=== PATIENT | female | born 1970 | race Hispanic/Latino ===

== ENCOUNTER 2016-12-04 13:15 | Emergency (ER) | payer SELFPAY ==
[2016-12-04 13:38] VITALS: BP 107/64
[2016-12-04 14:07] LABS: Basophils % (Auto) 1.1 % (0.0-1.8); Eosinophils % (Auto) 2.3 % (0.0-4.3); Hematocrit 42.7 % (30.3-42.9); Hemoglobin 14.1 gm/dl (10.1-14.3); Mean Corpuscular HGB Conc 33 % (30-34); Mean Corpuscular Hemoglobin 29 pg (28-32); Mean Corpuscular Volume 86 fl (79-97); Platelet Count 430 K/mm3 (140-440); Red Blood Count 4.96 M/mm3 (3.65-5.03); Red Cell Distribution Width 15.8 % (13.2-15.2); White Blood Count 8.3 K/mm3 (4.5-11.0)
[2016-12-04 14:20] LABS: Anion Gap 17 mmol/L; BUN/Creatinine Ratio 13; Blood Urea Nitrogen 10 mg/dL (7-17); Calcium 9.1 mg/dL (8.4-10.2); Carbon Dioxide 26 mmol/L (22-30); Chloride 101.7 mmol/L (98-107); Glucose 82 mg/dL (65-100); Potassium 4.4 mmol/L (3.6-5.0); Sodium 140 mmol/L (137-145)
[2016-12-04 16:51] LABS: Urine Drugs of Abuse Note Disclamer
[2016-12-04 17:06] LABS: Bilirubin,Urine NEG (Negative); Blood,Urine MOD (Negative); Ketones,Urine TR mg/dL (Negative); Leukocyte Esterase,Urine MOD (Negative); Mucus,Urine 3+ /HPF; Nitrite,Urine NEG (Negative); Protein,Urine <15 mg/dL mg/dL (Negative)
== END 2016-12-04 16:25 | disposition left against medical advice (07) ==
LOC: ED 13:15
DX: F32.9 Major depressive disorder, single episode, unspecified (principal); Z53.21 Procedure and treatment not carried out due to patient leaving prior to being seen by health care provider
CPT/HCPCS: 36415; 80048; 80307; 81001; 85025; G0480; 80320

== ENCOUNTER 2018-09-28 14:53 | Emergency (ER) | payer OTHER ==
--- NOTE | 2018-09-28 15:14 | Event Note ---
ED Screening Note Date of service: 09/28/18 Time: 15:12 ED Screening Note: 48 y o female presents with cc of flank pain and pain with urination also cc of metcalf/ This initial assessment/diagnostic orders/clinical plan/treatment(s) is/are subject to change based on patients health status, clinical progression and re- assessment by fellow clinical providers in the ED. Further treatment and workup at subsequent clinical providers discretion. Patient/guardian urged not to elope from the ED as their condition may be serious if not clinically assessed and managed. Initial orders include: ua
[2018-09-28 15:17] VITALS: BP 107/54
[2018-09-28 16:11] LABS: Bacteria,Urine 2+ /HPF (Negative); Bilirubin,Urine NEG (Negative); Blood,Urine MOD (Negative); Color,Urine Yellow (Yellow); Mucus,Urine 1+ /HPF; Urobilinogen,Urine < 2.0 mg/dL (<2.0)
[2018-09-28 16:12] LABS: WBC,Urine > 182.0 /HPF (0.0-6.0)
--- NOTE | 2018-09-28 16:39 | Emergency Department Report ---
ED Female HPI - General Chief complaint: Urogenital-Female Stated complaint: HEADACHE/BACK/NECK PAIN/BURNING WHEN URINATE Time Seen by Provider: 09/28/18 15:12 Source: patient Mode of arrival: Ambulatory Limitations: No Limitations - History of Present Illness Initial comments: This is a 48-year-old female who presents to the emergency room with dysuria and pelvic pain for 3 days. Past medical history of arthritis, asthma, depression, bipolar, borderline personality disorder, and sciatica. Patient states she was discharged from [facility] on amoxicillin for urinary tract infection. She completed the last pill today with worsening symptoms. She denies hematuria, fever, and vaginal discharge. MD Complaint: dysuria Onset/Timin -: days(s) Location: suprapubic Radiation: L flank Severity: moderate Severity scale (0 -10): 8 Quality: aching Consistency: constant Improves with: none Worsens with: none Are you Now?: No Last Menstrual Period: 09/06/18 EDC: 06/13/19 Associated Symptoms: headaches, dysuria. denies: vaginal discharge, vaginal bleeding, abdominal pain, nausea/vomiting, fever/chills, loss of appetite, hematuria, rash, seizure, shortness of breath, syncope, weakness - Related Data Sexually active: No Previous Rx's Medication Instructions Recorded Last Taken Type Ciprofloxacin HCl [Ciprofloxacin 500 mg PO Q12HR #14 tab 09/28/18 Unknown Rx TAB] Ibuprofen [Motrin 800 MG tab] 800 mg PO Q8HR PRN #20 tablet 09/28/18 Unknown Rx Allergies Allergy/AdvReac Type Severity Reaction Status Date / Time No Known Allergies Allergy Verified 09/28/18 14:56 ED Review of Systems ROS: Stated complaint: HEADACHE/BACK/NECK PAIN/BURNING WHEN URINATE Other details as noted in HPI Constitutional: denies: chills, fever Respiratory: denies: cough, shortness of breath, wheezing Cardiovascular: denies: chest pain, palpitations Gastrointestinal: abdominal pain. denies: nausea, diarrhea Genitourinary: dysuria. denies: urgency, discharge Musculoskeletal: back pain. denies: joint swelling, arthralgia Skin: denies: rash, lesions Neurological: denies: headache, weakness, paresthesias Psychiatric: denies: anxiety, depression ED Past Medical Hx - Past Medical History Previous Medical History?: Yes Hx Arthritis: Yes Hx Psychiatric Treatment: Yes (depression, Bipolar, borderline personality, PTSD) Hx Asthma: Yes Additional medical history: Sciatica. Pulmonary HTN - Surgical History Past Surgical History?: Yes Hx Appendectomy: Yes Additional Surgical History: tubal ligation - Social History Smoking Status: Light Tobacco Smoker Substance Use Type: None - Medications Home Medications: Home Medications Medication Instructions Recorded Confirmed Last Taken Type Ciprofloxacin HCl [Ciprofloxacin 500 mg PO Q12HR #14 tab 09/28/18 Unknown Rx TAB] Ibuprofen [Motrin 800 MG tab] 800 mg PO Q8HR PRN #20 tablet 09/28/18 Unknown Rx ED Physical Exam - General Limitations: No Limitations General appearance: alert, in no apparent distress - Respiratory Respiratory exam: Present: normal lung sounds bilaterally. Absent: respiratory distress - Cardiovascular Cardiovascular Exam: Present: regular rate, normal rhythm. Absent: systolic murmur, diastolic murmur, rubs, gallop - GI/Abdominal GI/Abdominal exam: Present: soft, normal bowel sounds. Absent: distended, tenderness, guarding, rebound, rigid - Back Exam Back exam: Present: CVA tenderness (R), CVA tenderness (L). Absent: muscle spasm, paraspinal tenderness, vertebral tenderness, rash noted - Neurological Exam Neurological exam: Present: alert, oriented X3, normal gait - Psychiatric Psychiatric exam: Present: normal affect, normal mood - Skin Skin exam: Present: warm, dry, intact, normal color. Absent: rash ED Course Vital Signs 09/28/18 15:11 Temperature 98.3 F Pulse Rate 87 Respiratory 16 Rate Blood Pressure 107/54 O2 Sat by Pulse 96 Oximetry ED Medical Decision Making - Lab Data Lab Results 09/28/18 Range/Units 15:40 Urine Color Yellow (Yellow) Urine Turbidity Cloudy (Clear) Urine pH 5.0 (5.0-7.0) Ur Specific [place] 1.016 (1.003-1.030) Urine Protein 100 mg/dl (Negative) mg/dL Urine Glucose (UA) Neg (Negative) mg/dL Urine Ketones Neg (Negative) mg/dL Urine Blood Mod (Negative) Urine Nitrite Pos (Negative) Urine Bilirubin Neg (Negative) Urine Urobilinogen < 2.0 (<2.0) mg/dL Ur Leukocyte Esterase Mod (Negative) Urine WBC (Auto) > 182.0 H (0.0-6.0) /HPF Urine RBC (Auto) 118.0 (0.0-6.0) /HPF U Epithel Cells (Auto) 13.0 (0-13.0) /HPF Urine Bacteria (Auto) 2+ (Negative) /HPF Urine WBC Clumps 1+ /HPF Urine Mucus 1+ /HPF - Medical Decision Making Patient was examined by me. Patient is nontoxic appearing and stable. Vitals are normal. Obtained UA which is positive for acute cystis. Patient completed augmentin today prescribed by [facility] for UTI. Given analgesics and Rocephin while in the ER. Start cipro and ibuprofen. Follow up with PCP or instructed to return to ER with worsening symptoms. Patient discharged home in stable condition. Critical care attestation.: If time is entered above; I have spent that time in minutes in the direct care of this critically ill patient, excluding procedure time. ED Disposition Clinical Impression: Dysuria, Complicated urinary tract infection Disposition: - TO HOME OR SELFCARE Is pt being admited?: No Does the pt Need Aspirin: No Condition: Stable Instructions: Urinary Tract Infection in Women (ED) Additional Instructions: Complete full course of antibiotics. Increase fluid intake to 1L to 2L daily. Return to the ER with worsening symptoms such as fever, increasing pain, nausea/vomiting, and bleeding. Follow-up with her primary care doctor in the next 3-5 days. Prescriptions: Ciprofloxacin HCl [Ciprofloxacin TAB] 500 mg PO Q12HR #14 tab Ibuprofen [Motrin 800 MG tab] 800 mg PO Q8HR PRN #20 tablet PRN Reason: Pain , Severe (7-10) Referrals: YOLIE BENITO MD [Primary Care Provider] - 3-[address] [facility] [Outside] - 3-5 Days [facility] [Outside] - 3-5 Days Time of Disposition: 16:46
[2018-09-28] MEDS ORDERED: XYLOCAINE 1% MPF 5 mL INFILTRATI ONE (16:40)
[2018-09-28] MEDS ORDERED: ROCEPHIN IM ONE (16:40)
[2018-09-28] MEDS ORDERED: ULTRAM PO ONE (16:42)
== END 2018-09-28 16:53 | disposition home or self-care (01) ==
LOC: ED 14:53
DX: N39.0 Urinary tract infection, site not specified (principal); M19.90 Unspecified osteoarthritis, unspecified site; F31.9 Bipolar disorder, unspecified; F43.10 Post-traumatic stress disorder, unspecified; J45.909 Unspecified asthma, uncomplicated; Z98.51 Tubal ligation status; Z79.899 Other long term (current) drug therapy
CPT/HCPCS: 81001; 96372; 99283; J0696

== ENCOUNTER 2019-06-12 04:05 | Emergency (ER) | payer SELFPAY ==
[2019-06-12 05:20] LABS: Basophils # (Auto) 0.1 K/mm3 (0.0-0.1); Basophils % (Auto) 0.6 % (0.0-1.8); Eosinophils # (Auto) 0.3 K/mm3 (0.0-0.4); Eosinophils % (Auto) 1.4 % (0.0-4.3); Hematocrit 39.6 % (30.3-42.9); Hemoglobin 13.1 gm/dl (10.1-14.3); Lymphocytes % (Auto) 10.6 % (13.4-35.0); Mean Corpuscular HGB Conc 33 % (30-34); Mean Corpuscular Volume 85 fl (79-97); Monocytes # (Auto) 1.3 K/mm3 (0.0-0.8); Platelet Count 321 K/mm3 (140-440); Red Blood Count 4.67 M/mm3 (3.65-5.03); Red Cell Distribution Width 15.9 % (13.2-15.2)
[2019-06-12 05:36] LABS: BUN/Creatinine Ratio 30; Blood Urea Nitrogen 18 mg/dL (7-17); Hemolysis Index 9
[2019-06-12 11:28] VITALS: BP 122/76
--- NOTE | 2019-06-12 11:56 | XRay Report ---
CHEST 2 VIEWS, 06/12/2019 11:43 AM INDICATION: Cough. Shortness of breath. COMPARISON: None FINDINGS: Support devices: None Heart: The heart is normal in size. Lungs/pleura: The lungs are clear of focal airspace disease or significant pleural effusion. Additional findings: No significant acute abnormality. IMPRESSION: 1. No evidence of acute cardiopulmonary process. Signer Name: Nikky Fofana MD Signed: 06/12/2019 11:51 AM Workstation Name: [id number]
--- NOTE | 2019-06-12 12:25 | Emergency Department Report ---
ED Psych HPI - General Chief Complaint: Psych Stated Complaint: DEPRESSION Time Seen by Provider: 06/12/19 12:15 Source: patient Mode of arrival: Ambulatory - History of Present Illness Initial Comments: Chief complaint: "I need to be checked for my mental. I'm homeless." HPI: This is a 49-year-old female with history of depression bipolar disorder PTSD borderline personality disorder asthma GERD pulmonary hypertension who presents with depression suicidal ideation sore throat right earache. Sore throat right earache has been present for several days. She desires to talk to someone about depression. She also wants resources for homelessness. She did not originally endorse suicidal ideation. However when asked about suicidal ideation she states that she has thoughts of taking pills. MD Complaint: suicidal ideation, feels depressed -: Gradual Associated Psychiatric Symptoms: none History of same: Yes Quality: constant Improves With: none Worsens With: none Context: not taking psychiatric, significant life stressor Associated Symptoms: other (Sore throat cough and right earache) - Related Data Previous Rx's Medication Instructions Recorded Last Taken Type Ciprofloxacin HCl [Ciprofloxacin 500 mg PO Q12HR #14 tab 09/28/18 Unknown Rx TAB] Ibuprofen [Motrin 800 MG tab] 800 mg PO Q8HR PRN #20 tablet 09/28/18 Unknown Rx Doxycycline Hyclate 100 mg PO Q12H #20 tablet. 06/07/19 Unknown Rx metroNIDAZOLE [Flagyl] 500 mg PO Q12HR #14 tab 06/07/19 Unknown Rx Doxycycline Hyclate [Doxycycline 100 mg PO Q12HR 7 Days #14 tab 06/12/19 Unknown Rx Hyclate TAB] Allergies Allergy/AdvReac Type Severity Reaction Status Date / Time No Known Allergies Allergy Verified 09/28/18 14:56 ED Review of Systems ROS: Stated complaint: DEPRESSION Other details as noted in HPI Comment: All other systems reviewed and negative Constitutional: denies: fever, malaise ENT: ear pain, throat pain Respiratory: cough Gastrointestinal: denies: abdominal pain, nausea, vomiting Psychiatric: depression, suicidal thoughts ED Past Medical Hx - Past Medical History Previous Medical History?: Yes Hx GERD: Yes Hx Arthritis: Yes Hx Psychiatric Treatment: Yes (depression, Bipolar, borderline personality, PTSD) Hx Asthma: Yes Additional medical history: Sciatica. Pulmonary HTN - Surgical History Past Surgical History?: Yes Hx Appendectomy: Yes Additional Surgical History: tubal ligation - Social History Smoking Status: Current Every Day Smoker Substance Use Type: Alcohol, Cocaine, Marijuana - Medications Home Medications: Home Medications Medication Instructions Recorded Confirmed Last Taken Type Ciprofloxacin HCl [Ciprofloxacin 500 mg PO Q12HR #14 tab 09/28/18 Unknown Rx TAB] Ibuprofen [Motrin 800 MG tab] 800 mg PO Q8HR PRN #20 tablet 09/28/18 Unknown Rx Doxycycline Hyclate 100 mg PO Q12H #20 tablet. 06/07/19 Unknown Rx metroNIDAZOLE [Flagyl] 500 mg PO Q12HR #14 tab 06/07/19 Unknown Rx Doxycycline Hyclate [Doxycycline 100 mg PO Q12HR 7 Days #14 tab 06/12/19 Unknown Rx Hyclate TAB] ED Physical Exam - General Limitations: No Limitations General appearance: alert, in no apparent distress - Head Head exam: Present: atraumatic, normocephalic - Eye Eye exam: Present: normal appearance. Absent: conjunctival injection - ENT ENT exam: Present: normal orophraynx, mucous membranes moist, other (Right TM: Bulging erythematous dim) - Neck Neck exam: Present: normal inspection, full ROM - Respiratory Respiratory exam: Present: normal lung sounds bilaterally. Absent: respiratory distress, wheezes, rales, rhonchi - Cardiovascular Cardiovascular Exam: Present: regular rate, normal rhythm, normal heart sounds. Absent: systolic murmur, diastolic murmur, rubs, gallop - GI/Abdominal GI/Abdominal exam: Present: soft, normal bowel sounds. Absent: distended, guarding, rebound - Extremities Exam Extremities exam: Present: normal inspection - Neurological Exam Neurological exam: Present: alert, oriented X3 - Psychiatric Psychiatric exam: Present: normal affect, normal mood - Skin Skin exam: Present: warm, dry, intact, normal color. Absent: rash ED Course Vital Signs 06/12/19 06/12/19 06/12/19 04:09 11:24 12:56 Temperature 98.8 F 98.0 F Pulse Rate 92 H 94 H Respiratory 18 26 H 14 Rate Blood Pressure 124/72 Blood Pressure 122/76 [Right] O2 Sat by Pulse 97 97 Oximetry ED Medical Decision Making - Lab Data Result diagrams: 06/12/19 04:40 06/12/19 04:40 - Radiology Data Radiology results: report reviewed Chest radiograph: No acute cardiopulmonary process according to radiology report - Medical Decision Making 1. Acute depression with suicidal ideation,Patient appears to be low risk for self-harm. She is medically clear for psychiatric care. Our mental health nremt evaluated patient. Psychiatric team agreed that outpatient psychiatric treatment would be best. 2. Right otitis media, bronchitis: Antibiotics are indicated for bronchitis considering tobacco abuse. Doxycycline has been ordered. Patient has leukocytosis elevated white count 18.4 without SIRS. I do not suspect sepsis bacteremia. Patient will need outpatient follow-up. Discharged home. Critical care attestation.: If time is entered above; I have spent that time in minutes in the direct care of this critically ill patient, excluding procedure time. ED Disposition Clinical Impression: Acute depression, Suicidal ideation, Right otitis media, Acute bronchitis Disposition: DC- TO HOME OR SELFCARE Is pt being admited?: No Does the pt Need Aspirin: No Condition: Stable Instructions: Acute Bronchitis (ED), Otitis Media (ED) Prescriptions: Doxycycline Hyclate [Doxycycline Hyclate TAB] 100 mg PO Q12HR 7 Days #14 tab Referrals: EMMY LANE MD [Staff Physician] - 3-5 Days
[2019-06-12] MEDS ORDERED: DOXYCYCLINE 100 MG TAB PO ONE (12:26)
[2019-06-12 13:03] LABS: Bilirubin,Urine NEG (Negative); Blood,Urine NEG (Negative); Color,Urine Yellow (Yellow); Mucus,Urine FEW /HPF; Protein,Urine <15 mg/dL mg/dL (Negative); Urobilinogen,Urine < 2.0 mg/dL (<2.0)
[2019-06-12 13:10] LABS: Benzodiazepines Screen,Urine PRESUMPTIVE NEGATIVE; Cannabinoid Screen,Urine PRESUMPTIVE NEGATIVE; Methadone Screen,Urine PRESUMPTIVE NEGATIVE; Opiate Screen,Urine PRESUMPTIVE NEGATIVE
[2019-06-12 13:55] LABS: Amphetamine Screen,Urine PRESUMPTIVE POSITIVE; Cocaine Screen,Urine PRESUMPTIVE POSITIVE
== END 2019-06-12 13:46 | disposition home or self-care (01) ==
LOC: ED 04:05
DX: J20.9 Acute bronchitis, unspecified (principal); H66.91 Otitis media, unspecified, right ear; R45.851 Suicidal ideations; F32.9 Major depressive disorder, single episode, unspecified; K21.9 Gastro-esophageal reflux disease without esophagitis; J45.909 Unspecified asthma, uncomplicated; I10 Essential (primary) hypertension; M19.90 Unspecified osteoarthritis, unspecified site; F12.90 Cannabis use, unspecified, uncomplicated; F17.200 Nicotine dependence, unspecified, uncomplicated; F14.90 Cocaine use, unspecified, uncomplicated; Z90.49 Acquired absence of other specified parts of digestive tract; Z98.51 Tubal ligation status; Z79.899 Other long term (current) drug therapy
CPT/HCPCS: 36415; 71046; 80048; 80307; 80320; 81001; 85025; G0480

== ENCOUNTER 2019-09-28 17:15 | Emergency (ER) | payer SELFPAY ==
[2019-09-28 21:56] VITALS: BP 120/60
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
== END 2019-09-28 22:25 | disposition home or self-care (01) ==
LOC: ED 17:15
DX: F32.9 Major depressive disorder, single episode, unspecified (principal); Z59.0 Homelessness; Z00.00 Encounter for general adult medical examination without abnormal findings; K21.9 Gastro-esophageal reflux disease without esophagitis; M19.91 Primary osteoarthritis, unspecified site; J45.909 Unspecified asthma, uncomplicated; F17.200 Nicotine dependence, unspecified, uncomplicated; F14.10 Cocaine abuse, uncomplicated; Z90.49 Acquired absence of other specified parts of digestive tract; Z98.51 Tubal ligation status; Z79.1 Long term (current) use of non-steroidal anti-inflammatories (NSAID); Z79.899 Other long term (current) drug therapy